=== PATIENT | male | born 1970 | race Caucasian/White ===

== ENCOUNTER 2022-08-03 03:37 | Outpatient (CLI) | payer BC, SELFPAY ==
[2022-08-03 17:09] LABS: ALT 34 U/L (16-63); AST 22 U/L (15-37); Albumin 4.2 g/dL (3.4-5.0); Alkaline Phosphatase 127 U/L (46-116); Bilirubin, Direct 0.2 mg/dL (0.0-0.2); Bilirubin, Total 0.6 mg/dL (0.2-1.0); Total Protein 8.8 g/dL (6.4-8.2)
[2022-08-03 17:26] LABS: Calculated LDL 47 mg/dL (<100); Cholesterol 95 mg/dL (<200); HDL Cholesterol 36 mg/dL (40-60); Triglyceride 64 mg/dL (<150)
== END 2022-08-03 03:38 | disposition home or self-care (01) ==
PROVIDERS: Visit Provider Physician Assistant
DX: E78.5 Hyperlipidemia, unspecified (principal); I25.10 Atherosclerotic heart disease of native coronary artery without angina pectoris
CPT/HCPCS: 36415; 80061; 80076